=== PATIENT | male | born 1955 | race Caucasian/White ===

== ENCOUNTER 2018-11-18 12:55 | Outpatient (CLI) | payer OTHER ==
--- NOTE | 2018-11-18 14:31 | RAD ---
THREE VIEWS RIGHT SHOULDER: History: Right shoulder pain. Technique: AP internal, external, and scapular Y views were obtained. FINDINGS: There is no evidence of right shoulder fractures, subluxations, or bony lesions. No significant degen erative change is seen. IMPRESSION: Normal three views right shoulder. POS: CET
== END 2018-11-18 12:56 | disposition home or self-care (01) ==
LOC: NAV RAD 12:55
PROVIDERS: ATTEND Orthopaedic Surgery
DX: M25.511 Pain in right shoulder (principal)